=== PATIENT | female | born 1995 | race Two or more races ===

== ENCOUNTER 2020-12-04 18:58 | Emergency (ER) | payer SELFPAY ==
[~2020-12-04] VITALS: Ht 165.1 cm; Wt 64.0 kg
[2020-12-04] MEDS ORDERED: HALOPERIDOL LACTATE 5MG/ML VIAL IM ONE (20:15)
[2020-12-04] MEDS ORDERED: DIPHENHYDRAMINE 50MG/ML VIAL IM PRN (20:15)
[2020-12-04] MEDS ORDERED: LORAZEPAM 2MG/ML CPJ IM PRN (20:15)
[2020-12-04 20:58] LABS: CLARITY URINE CLOUDY (CLEAR); COLOR URINE YELLOW (YELLOW); KETONES URINE TRACE (NEGATIVE); LEUKOCYTE ESTERASE URINE 1+ (NEGATIVE); NITRITE URINE POSITIVE (NEGATIVE); OCCULT BLOOD URINE NEGATIVE (NEGATIVE); PROTEIN URINE TRACE (NEGATIVE); SPECIFIC GRAVITY URINE 1.023 (1.005-1.030)
[2020-12-04 21:10] LABS: METHADONE URINE SCREEN NEGATIVE (NEGATIVE)
[2020-12-04 21:11] LABS: *BARBITURATES SCREEN URINE NEGATIVE (NEGATIVE); *BENZODIAZEPINES SCREEN URINE NEGATIVE (NEGATIVE); *COCAINE SCREEN URINE NEGATIVE (NEGATIVE); OPIATES URINE SCREEN NEGATIVE (NEGATIVE); PHENCYCLIDINE URINE SCREEN NEGATIVE (NEGATIVE)
[2020-12-04 21:13] LABS: BASOPHILS % 0.9 % (0.0-2.0); EOSINOPHILS % 3.2 % (0.0-5.0); LYMPHOCYTES % 28.5 % (20.0-50.0); MEAN CORPUSCULAR HEMOGLOBIN 31.6 pg (28.0-32.0); MEAN CORPUSCULAR VOLUME 91.8 fL (81.0-99.0); MEAN PLATELET VOLUME 9.1 fl (7.4-10.4); MONOCYTES % 6.3 % (2.0-8.0); NEUTROPHILS % 61.1 % (40.0-76.0); PLATELET 224 x1000/uL (130-400); RED BLOOD CELL COUNT 3.81 mill/uL (4.2-5.4); RED CELL DISTRIBUTION WIDTH 13.2 % (11.6-14.6)
[2020-12-04 21:15] LABS: *AMPHETAMINES SCREEN URINE PRESUMTIVE POSITIVE (NEGATIVE); CANNABINOID URINE SCREEN PRESUMTIVE POSITIVE (NEGATIVE)
[2020-12-04 21:18] LABS: CHLORIDE 111 mEq/L (98-107)
[2020-12-04 21:22] LABS: ETHANOL BLOOD < 10 mg/dL
[2020-12-05] MEDS ORDERED: NITR-87 MT (10:16)
[2020-12-05 10:53] VITALS: BP 101/58
== END 2020-12-05 11:13 | disposition home or self-care (01) ==
LOC: ER 18:58 → EDBD 18:58 → ER 12-05 11:13
DX: R41.82 Altered mental status, unspecified (principal); I10 Essential (primary) hypertension; F12.10 Cannabis abuse, uncomplicated; F15.10 Other stimulant abuse, uncomplicated
CPT/HCPCS: 36415; 80053; 80305; 80307; 80320; 80329; 81003; 85025; 87086; 96372; 99285; J1200; J1630; J2060; Z7610; G0480